=== PATIENT | female | born 1965 | race Caucasian/White ===

== ENCOUNTER 2016-09-23 10:26 | Day surgery (SDC) | payer BC ==
[2016-09-23] MEDS ORDERED: PROPOFOL 10 MG/ML VIAL IV ONE (14:09)
[2016-09-23] MEDS ORDERED: MIDAZOLAM HCL 2MG/2ML VIAL IV ONE (14:09)
--- NOTE | 2016-09-27 09:10 | Operative Note ---
DATE OF SURGERY: 09/23/2016 SURGEON: Trent Bran MD OPERATION: COLONOSCOPY. INDICATIONS: This is a 51-year-old female with average risk for colorectal cancer who presented for screening colonoscopy. POSTOPERATIVE DIAGNOSES: 1. Left-sided colonic diverticulosis. 2. A 3 mm sigmoid colon polyp that was removed by cold biopsy forceps. ANESTHESIA: Sedation is per Anesthesia. Pulse oximetry was monitored throughout the procedure to maintain O2 saturation of 90% or greater. Supplemental oxygen was administered via nasal cannula. Cardiac and vital signs were monitored throughout the duration of the procedure, and they were stable. The procedure of colonoscopy and risks and benefits of the procedure, including the risk of bleeding and perforation, among others, were explained to the patient who voiced understanding and desired to have the procedure done. Physical examination was performed, and the patient was found stable for sedation. PROCEDURE: The patient was placed in the left lateral position. Sedation was initiated. A digital rectal exam was performed and showed some mild external hemorrhoids with no palpable rectal masses. An Olympus PCF-180AL colonoscope was then inserted into the rectum under direct visualization. It was advanced to the cecum without difficulty. The ileocecal valve and appendiceal orifice were identified and photographed. The colonic mucosa was carefully examined upon introduction of the colonoscope. There were scattered diverticula noted in the sigmoid and descending colon. In the sigmoid colon was a 3 mm sessile polyp that was noted and was removed by cold biopsy forceps. There were no other lesions noted. The colonoscope was then withdrawn while carefully examining the colonic mucosal surfaces. No other lesions were noted. In the rectum, retroflexion was performed and grade 1 internal hemorrhoids were noted. The colonoscope was then withdrawn and the procedure was terminated. The patient tolerated the procedure well without any immediate complications. He remained with stable vital signs and was transferred to the recovery room. RECOMMENDATIONS: 1. He should be on a high-fiber diet. 2. He should have a repeat colonoscopy for surveillance in 5-10 years depending on the histology of the polyp. Thank you for allowing me to participate in the care of your patient. Trent Bran MD CC: Dr. Roger VARNER
== END 2016-09-23 12:32 | disposition home or self-care (01) ==
LOC: HOP 10:26
PROVIDERS: ATTEND Internal Medicine Gastroenterology
DX: Z12.11 Encounter for screening for malignant neoplasm of colon (principal); K63.5 Polyp of colon; K57.30 Diverticulosis of large intestine without perforation or abscess without bleeding
CPT/HCPCS: 81025

== ENCOUNTER 2017-09-29 06:58 | Day surgery (SDC) | payer OTHER, BC ==
[2017-09-29] MEDS ORDERED: MIDAZOLAM HCL 2MG/2ML VIAL IV ONE (06:59)
[2017-09-29] MEDS ORDERED: PROPOFOL 10 MG/ML VIAL IV ONE (06:59)
[2017-09-29] MEDS ORDERED: FENTANYL PF 100MCG/2ML VIAL IV ONE (06:59)
[2017-09-29] MEDS ORDERED: LIDOCAINE 2% MDV (20MG/ML) 20ML VIAL IV ONE (06:59)
--- NOTE | 2017-10-03 08:40 | Operative Note ---
DATE OF SURGERY: 09/29/2017 SURGEON: Trent Bran MD OPERATION: ESOPHAGOGASTRODUODENOSCOPY. INDICATIONS: This is a 52-year-old female with history of gastroesophageal reflux disease who presented for esophagogastroduodenoscopy. POSTOPERATIVE DIAGNOSES: 1. Normal esophagus with no ulcerations with rugae consistent with possible eosinophilic esophagitis. 2. Mild gastritis. 3. Normal duodenum. ANESTHESIA: Sedation is per Anesthesia. Pulse oximetry was monitored throughout the procedure to maintain O2 saturation of 90% or greater. Supplemental oxygen was administered via nasal cannula. Cardiac and vital signs were monitored throughout the duration of the procedure, and they were stable. The procedure of esophagogastroduodenoscopy and risks and benefits of the procedure, including the risk of bleeding and perforation, among others, were explained to the patient who voiced understanding and agreed to have the procedure done. Physical examination was performed, and the patient was found stable for sedation. PROCEDURE: The patient was placed in the left lateral position. Sedation was initiated. A plastic bite block was inserted into the oral cavity. The Olympus [id number] gastroscope was introduced into the oral cavity and advanced to the proximal esophagus without difficulty. The esophageal mucosa was carefully examined upon introduction of the gastroscope. The proximal and mid esophageal mucosa appeared normal except for the appearance of the mucosa. It appears to be consistent with eosinophilic esophagitis. The gastroscope was then advanced into the stomach, and surveillance of the stomach revealed diffuse erythema along the gastric body and antrum but no ulcers were noted. The gastroscope was then advanced to the descending duodenum without difficulty. The duodenal bulb and descending duodenum appeared normal. The gastroscope was then withdrawn into the stomach and retroflexion was performed. There were no other lesions noted. There was no hiatal hernia. The gastroscope was then withdrawn while carefully examining the mucosa surfaces. No other lesions noted. Multiple duodenal, gastric, and mid esophageal biopsies were obtained. The patient remained with stable vital signs and was transferred to the recovery room. RECOMMENDATIONS: 1. We will follow up on the biopsies. 2. I will be seeing her back in the office in about 2-3 months. Thank you for allowing me to participate in the care of your patient. CC: Dr. Roger VARNER
== END 2017-09-29 09:04 | disposition home or self-care (01) ==
LOC: HOP 06:58
PROVIDERS: ATTEND Internal Medicine Gastroenterology
DX: K21.9 Gastro-esophageal reflux disease without esophagitis (principal); K29.70 Gastritis, unspecified, without bleeding; E78.00 Pure hypercholesterolemia, unspecified